=== PATIENT | female | born 1990 | race American Indian/Alaskan Native ===

== ENCOUNTER 2020-08-04 08:37 | Emergency (ER) | payer OTHER ==
--- NOTE | 2020-08-04 09:02 | Event Note ---
ED Screening Note Date of service: 08/04/20 Time: 08:58 ED Screening Note: This initial assessment/diagnostic orders/clinical plan/treatment(s) is/are subject to change based on patients health status, clinical progression and re- assessment by fellow clinical providers in the ED. Further treatment and workup at subsequent clinical providers discretion. Patient/guardian urged not to elope from the ED as their condition may be serious if not clinically assessed and managed. Initial orders include: This is a 34-year-old morbidly obese female complaining of acute abdominal pain scale of an 8/10 started at 7 AM this morning she states it woke her out of her sleep. She vomited twice. She denies any diarrhea no fever. Patient has no past medical history she does not take any medication and has not taken anything to relieve it her the pain is in the center of her abdomen and does not radiate.
[2020-08-04 09:48] LABS: Hematocrit 38.8 % (30.3-42.9); Hemoglobin 12.7 gm/dl (10.1-14.3); Mean Corpuscular HGB Conc 33 % (30-34); Mean Corpuscular Volume 86 fl (79-97); Platelet Count 334 K/mm3 (140-440); Red Blood Count 4.54 M/mm3 (3.65-5.03); Red Cell Distribution Width 14.7 % (13.2-15.2)
[2020-08-04 09:50] LABS: Bilirubin,Urine NEG (Negative); Blood,Urine MOD (Negative); Color,Urine Yellow (Yellow); Mucus,Urine FEW /HPF; Urobilinogen,Urine < 2.0 mg/dL (<2.0)
[2020-08-04 10:18] LABS: HCG Qualitative,Urine Negative (Negative)
[2020-08-04 10:21] LABS: Alanine Aminotransferase 13 units/L (7-56); Albumin 3.9 g/dL (3.9-5); Blood Urea Nitrogen 12 mg/dL (7-17); Calcium 8.6 mg/dL (8.4-10.2); Hemolysis Index 0
[2020-08-04 10:31] LABS: BUN/Creatinine Ratio 24
--- NOTE | 2020-08-04 10:43 | Emergency Department Report ---
HPI - General Chief Complaint: Abdominal Pain Time Seen by Provider: 08/04/20 10:28 - HPI HPI: Room 38 The patient is a 29-year-old female present with a chief complaint of abdominal pain. Patient states last night she consumed a small amount of alcohol and had eaten at the [employer] (sausage and hashbrowns). Patient states she went to sleep last night in her usual state of health however she was awakened this morning at approximately 07: 30 with epigastric pain described as twisting pain. Patient states her pain waxed and waned and she had an episode of nausea vomiting and the pain eventually subsided. Patient denied ever having diarrhea or fever. Patient denies dysuria or vaginal discharge. Patient states she is currently on her cycle and this is the normal time. Patient states when she bent over the pain felt like it radiated to her back but when she stood back up and no longer radiated. ED Past Medical Hx - Past Medical History Previous Medical History?: No - Surgical History Past Surgical History?: No - Family History Family history: no significant - Social History Smoking Status: Never Smoker Substance Use Type: None (Denies illicit drug use), Alcohol (Occasional) - Medications Home Medications: Home Medications Medication Instructions Recorded Confirmed Last Taken Type Dicyclomine [Bentyl] 20 mg PO QID #40 tablet 08/04/20 Unknown Rx HYDROcodone/APAP 5-325 [[place] 1 - 2 each PO Q6HR PRN #10 tablet 08/04/20 Unknown Rx 5/325] Ondansetron [Zofran ODT TAB] 8 mg PO Q8HR #20 tab.rapdis 08/04/20 Unknown Rx ED Review of Systems ROS: Stated complaint: ABD PAIN Other details as noted in HPI Constitutional: denies: fever Eyes: denies: eye pain ENT: denies: throat pain Respiratory: no symptoms reported Endocrine: no symptoms reported Gastrointestinal: abdominal pain, nausea, vomiting. denies: diarrhea Genitourinary: denies: dysuria, hematuria, discharge Musculoskeletal: back pain Neurological: denies: headache Physical Exam - Physical Exam Vital Signs: Vital Signs 08/04/20 08:48 Temperature 98.1 F Pulse Rate 91 H Respiratory 22 Rate Blood Pressure 158/91 O2 Sat by Pulse 100 Oximetry Physical Exam: GENERAL: The patient is well-developed well-nourished female lying on stretcher not appearing to be in acute distress. [] HEENT: Normocephalic. Atraumatic. Extraocular motions are intact. Patient has moist mucous membranes. NECK: Supple. Trachea midline CHEST/LUNGS: Clear to auscultation. There is no respiratory distress noted. HEART/CARDIOVASCULAR: Regular. There is no tachycardia. There is no gallop rub or murmur. ABDOMEN: Abdomen is soft, nontender. Patient has normal bowel sounds. There is no abdominal distention. There is no rebound or guarding SKIN: There is no rash. There is no edema. There is no diaphoresis. NEURO: The patient is awake, alert, and oriented. The patient is cooperative. The patient has no focal neurologic deficits. The patient has normal speech MUSCULOSKELETAL: There is no CVA tenderness. There is no evidence of acute injury. ED Course Vital Signs 08/04/20 08:48 Temperature 98.1 F Pulse Rate 91 H Respiratory 22 Rate Blood Pressure 158/91 O2 Sat by Pulse 100 Oximetry ED Medical Decision Making - Lab Data Result diagrams: 08/04/20 09:15 08/04/20 09:15 Laboratory Tests 08/04/20 08/04/20 08/04/20 09:02 09:15 09:15 WBC 10.5 RBC 4.54 Hgb 12.7 Hct 38.8 MCV 86 MCH 28 MCHC 33 RDW 14.7 Plt Count 334 Sodium 136 L Potassium 3.7 Chloride 102.2 Carbon Dioxide 26 Anion Gap 12 BUN 12 Creatinine 0.5 L Estimated GFR > 60 BUN/Creatinine Ratio 24 Glucose 106 H Calcium 8.6 Total Bilirubin < 0.20 AST 15 ALT 13 Alkaline Phosphatase 81 Total Protein 7.8 Albumin 3.9 Albumin/Globulin Ratio 1.0 Lipase 19 Urine Color Yellow Urine Turbidity Clear Urine pH 6.0 Ur Specific [place] 1.023 Urine Protein 30 mg/dl Urine Glucose (UA) Neg Urine Ketones Neg Urine Blood Mod Urine Nitrite Neg Urine Bilirubin Neg Urine Urobilinogen < 2.0 Ur Leukocyte Esterase Neg Urine WBC (Auto) 1.0 Urine RBC (Auto) 17.0 U Epithel Cells (Auto) 1.0 Urine Mucus Few Urine HCG, Qual Negative - Radiology Data Radiology results: report reviewed (Right upper quadrant ultrasound), image reviewed (Right upper quadrant ultrasound) [facility] [address] [place] [address] Ultrasound Report Signed Patient: AMANDA PACHECO MR#: [id number] : 1990 Acct:[id number] Age/Sex: 29 / F ADM Date: 08/04/20 Loc: ED Attending Dr: Ordering Physician: KAYLIN JONES MD Date of Service: 08/04/20 Procedure(s): US abdomen limited Accession Number(s): [id number] cc: KAYLIN JONES MD ULTRASOUND ABDOMEN, LIMITED (RIGHT UPPER QUADRANT) INDICATION: Abdominal pain nausea vomiting. COMPARISON: None available. FINDINGS: Pancreas: Visualized portion shows no significant abnormality. Liver: There is increased echogenicity in the liver. Gallbladder: Cholelithiasis Bile ducts: Normal. Common Bile Duct measures 2 mm. Free fluid: None. Additional Findings: None. IMPRESSION: 1. Cholelithiasis 2. There is increased echogenicity in the liver characteristic of fatty infiltration Signer Name: Mark Bryant MD Signed: 08/04/2020 12:18 PM Workstation Name: [id number] Transcribed By: SS Dictated By: Mark Bryant MD Electronically Authenticated By: Mark Bryant MD Signed Date/Time: 08/04/20 121 DD/ 1216 TD/TT: - Differential Diagnosis gastritis, symptomatic cholelithiasis, PUD, Critical care attestation.: If time is entered above; I have spent that time in minutes in the direct care of this critically ill patient, excluding procedure time. ED Disposition Clinical Impression: Symptomatic cholelithiasis Disposition: DC-01 TO HOME OR SELFCARE Is pt being admited?: No Does the pt Need Aspirin: No Condition: Stable Instructions: Abdominal Pain (ED), Cholelithiasis, [id number], Gallbladder Eating Plan Additional Instructions: Return to the emergency department should you develop worsening symptoms, inability to tolerate food or liquids, high fever or any other concerns Prescriptions: Dicyclomine [Bentyl] 20 mg PO QID #40 tablet HYDROcodone/APAP 5-325 [[place] 5/325] 1 - 2 each PO Q6HR PRN #10 tablet PRN Reason: Pain Ondansetron [Zofran ODT TAB] 8 mg PO Q8HR #20 tab.rapdis Referrals: TALA WHITE MD [Primary Care Provider] - 3-5 Days NABILA BANERJEE MD [Staff Physician] - 3-5 Days (Dr. Banerjee is a general surgeon. Please follow-up with him for further evaluation and management of your gallbladder) Time of Disposition: 12:29
[2020-08-04 11:58] VITALS: BP 114/59
--- NOTE | 2020-08-04 12:23 | Ultrasound Report ---
ULTRASOUND ABDOMEN, LIMITED (RIGHT UPPER QUADRANT) INDICATION: Abdominal pain nausea vomiting. COMPARISON: None available. FINDINGS: Pancreas: Visualized portion shows no significant abnormality. Liver: There is increased echogenicity in the liver. Gallbladder: Cholelithiasis Bile ducts: Normal. Common Bile Duct measures 2 mm. Free fluid: None. Additional Findings: None. IMPRESSION: 1. Cholelithiasis 2. There is increased echogenicity in the liver characteristic of fatty infiltration Signer Name: Mark Bryant MD Signed: 08/04/2020 12:18 PM Workstation Name: [id number]
== END 2020-08-04 14:22 | disposition home or self-care (01) ==
LOC: ED 08:37
DX: K80.80 Other cholelithiasis without obstruction (principal); Z79.899 Other long term (current) drug therapy
CPT/HCPCS: 36415; 76705; 80053; 81001; 81025; 83690; 85027